=== PATIENT | female | born 2000 | race Caucasian/White ===

== ENCOUNTER → 2020-03-10 | Outpatient (CLI) | payer OTHER ==
--- NOTE | 2020-03-10 16:39 | KCIC ---
Transabdominal sonography of the pelvis Clinical indications: Irregular menses. Dysmenorrhea. Elevated testosterone. FINDINGS: The uterus is anteverted in position. The longitudinal and AP and transverse dimensions of the uterus are 7.4 cm and 1.6 cm and 3.6 cm respectively. Endometrial canal measures 2 mm in thickness. No uterine mass or fibroid is seen. No free fluid is seen within the cul-de-sac. Left ovary measures 2.9 cm and 1.8 cm and 3.6 cm in size and contains a 10 mm follicular cyst. Color Doppler flow is seen within the left ovary. The right ovary measures 2.6 cm and 1.1 cm and 1.9 cm in size and is normal. Color Doppler flow is seen within the right ovary. No adnexal mass is seen. IMPRESSION: Unremarkable pelvic sonogram. Electronically signed by: Vitor Robles MD (03/10/2020 4:36 PM) [id number]
== END | disposition home or self-care (01) ==
LOC: KCIC US 10:34
PROVIDERS: ATTEND Obstetrics & Gynecology
DX: N92.6 Irregular menstruation, unspecified (principal); N94.6 Dysmenorrhea, unspecified; E28.1 Androgen excess
CPT/HCPCS: 76856